=== PATIENT | female | born 1945 | race Caucasian/White ===

== ENCOUNTER 2018-02-16 15:55 | Observation (INO) | payer OTHER ==
--- NOTE | 2018-02-16 16:12 | ED ---
HPI Chest Pain - HPI Summary HPI Summary: This pt is a 72 y/o female presenting to [facility] via EMS c/o sudden onset of chest pain today. Pt has hx aortic valve stenosis. She reports she had an episode of chest pain on Jan 30 that developed while at rest and lasted about 45 minutes. Pt notes today she was working on her computer while at rest when she suddenly had chest pain, more severe this time. She states this episode also lasted about 45 minutes. Additionally report palpitations, characterized as fast over 100 bpm. Her blood pressure today while she had chest pain was 176/ 75. Pt notes she took 1/4 of a mg of Ativan. Denies SOB, dizziness, swelling in LE, nausea, vomiting. Currently her chest pain has resolved. Pt is followed up by Dr. Gorman and has a scheduled stress test coming up this week. - History of Current Complaint Time Seen by Provider: 02/16/18 16:01 Hx Obtained From: Patient Onset/Duration: Started Minutes Ago, Resolved Timing: Lasting Minutes - 45 minutes Initial Severity: Severe Current Severity: None Pain Intensity: 0 Pain Scale Used: 0-10 Numeric Chest Pain Location: Diffuse Chest Pain Radiates: No Aggravating Factor(s): Nothing Alleviating Factor(s): Spontaneous Resolution Associated Signs and Symptoms: Positive: Chest Pain, Palpitations. Negative: Dizziness, Shortness of Breath, Fever, Chills, Calf Pain/Swelling, Edema - Allergy/Home Medications Allergies/Adverse Reactions: Allergies Allergy/AdvReac Type Severity Reaction Status Date / Time amoxicillin Allergy Hives Verified 02/16/18 19:42 Penicillins Allergy Unknown Verified 02/16/18 19:42 Reaction Details Sulfa (Sulfonamide Allergy Rash Verified 02/16/18 19:42 Antibiotics) sulfamethoxazole Allergy Unknown Verified 02/16/18 19:42 [From Bactrim] Reaction Details trimethoprim [From Bactrim] Allergy Unknown Verified 02/16/18 19:42 Reaction Details PMH/Surg Hx/FS Hx/Imm Hx Endocrine/Hematology History: Denies: Hx Diabetes, Hx Thyroid Disease Cardiovascular History: Reports: Hx Hypertension - W/MEDS, Other Cardiovascular Problems/Disorders - Aortic Stenosis Denies: Hx Congestive Heart Failure Respiratory History: Denies: Hx Asthma, Hx Chronic Obstructive Pulmonary Disease (COPD) GI History: Denies: Hx Ulcer History: Denies: Hx Renal Disease Musculoskeletal History: Reports: Other Musculoskeletal History - BLT frozen sholder, shattered elbow 2007 Denies: Hx Rheumatoid Arthritis, Hx Osteoporosis Sensory History: Reports: Hx Contacts or Glasses Opthamlomology History: Reports: Hx Contacts or Glasses Psychiatric History: Reports: Hx Depression - 30 yrs ago ok now - Cancer History Hx Chemotherapy: No Hx Radiation Therapy: No - Surgical History Surgery Procedure, Year, and Place: hysterectomy, pelvic floor reconstruction Infectious Disease History: Denies: Hx Hepatitis, Hx Human Immunodeficiency Virus (HIV) - Family History Known Family History: Positive: Hypertension - Father Family History: Mother with metastatic breast CA and colon CA - Social History Alcohol Use: Occasionally Substance Use Type: Reports: None Smoking Status (MU): Never Smoked Tobacco Review of Systems Negative: Fever, Chills Positive: Palpitations, Chest Pain Negative: Shortness Of Breath Negative: Vomiting, Nausea Negative: Edema - in LE Neurological: Other - NEG: dizziness All Other Systems Reviewed And Are Negative: Yes Physical Exam - Summary Physical Exam Summary: VITAL SIGNS: Reviewed. GENERAL: Patient is a well-developed and nourished female who is lying comfortable in the stretcher. Patient is not in any acute respiratory distress. HEAD AND FACE: No signs of trauma. No ecchymosis, hematomas or skull depressions. No sinus tenderness. EYES: PERRLA, EOMI x 2, No injected conjunctiva, no nystagmus. EARS: Hearing grossly intact. Ear canals and tympanic membranes are within normal limits. MOUTH: Oropharynx within normal limits. NECK: Supple, trachea is midline, no adenopathy, no JVD, no carotid bruit, no c- spine tenderness, neck with full ROM. CHEST: Symmetric, no tenderness at palpation LUNGS: Clear to auscultation bilaterally. No wheezing or crackles. CVS: Regular rate and rhythm, S1 and S2 present, no gallops appreciated. Ejection systolic murmur 4/6. ABDOMEN: Soft, non-tender. No signs of distention. No rebound, no guarding, and no masses palpated. Bowel sounds are normal. EXTREMITIES: FROM in all major joints, no edema, no cyanosis or clubbing. NEURO: Alert and oriented x 3. No acute neurological deficits. Speech is normal and follows commands. SKIN: Dry and warm Triage Information Reviewed: Yes Vital Signs On Initial Exam: Initial Vitals Temp Pulse Resp BP Pulse Ox 99.3 F 109 16 183/77 96 02/16/18 16:01 02/16/18 16:01 02/16/18 16:01 02/16/18 16:01 02/16/18 16:01 Vital Signs Reviewed: Yes Diagnostics - Laboratory Result Diagrams: 02/16/18 16:35 02/16/18 16:35 Lab Statement: Any lab studies that have been ordered have been reviewed, and results considered in the medical decision making process. - Radiology Chest XR Xray Interpretation: No Acute Changes - IMPRESSION: Stigmata of obstructive lung disease. No acute pulmonary or cardiac process evident. Dr. Boyd has reviewed this report. Radiology Interpretation Completed By: Radiologist - EKG 16:11 Cardiac Rate: Tachycardia - at 107 bpm EKG Rhythm: Sinus Tachycardia EKG Interpretation: ST depressions in V4-V6. Re-Evaluation - Re-Evaluation First Eval Re-Evaluation Time: 18:26 Comment: I reviewed the lab and XR results with the pt. I discussed the admission plan with the pt, she understands and agrees. Chest Pain Course/Dx - Course Assessment/Plan: This pt is a 72 y/o female presenting to [facility] via EMS c/o sudden onset of chest pain today. Pt has hx aortic valve stenosis. She reports she had an episode of chest pain on Jan 30 that developed while at rest and lasted about 45 minutes. Pt notes today she was working on her computer while at rest when she suddenly had chest pain, more severe this time. She states this episode also lasted about 45 minutes. Additionally report palpitations, characterized as fast over 100 bpm. Her blood pressure today while she had chest pain was 176/75. Pt notes she took 1/4 of a mg of Ativan. Denies SOB, dizziness, swelling in LE, nausea, vomiting. Currently her chest pain has resolved. Pt is followed up by Dr. Gorman and has a scheduled stress test coming up this week. Blood work without any significant abnormality except for glucose 146, BNP 114. Chest x-ray no acute pathology. Since the patient is having this intermittent chest pain at rest I discussed my physical exam and findings with Dr. Reinoso, hospitalist, who accepted the patient for admission. The patient at this time is hemodynamically stable alert oriented 3. - Chest Pain Differential Diagnosis/HQI/PQRI: Acute [place], ACS, Angina, CHF, Chest Wall, GI Disease, Lower Respiratory Infection - Diagnoses Provider Diagnoses: Chest pain, Angina at rest - Provider Notifications Discussed Care Of Patient With: Taj Reinoso - Hospitalist Time Discussed With Above Provider: 18:17 Instructed by Provider To: Admit As Inpatient Discharge - Sign-Out/Discharge Documenting (check all that apply): Patient Departure - Admit to [facility] All imaging exams completed and their final reports reviewed: Yes - Discharge Plan Condition: Good Disposition: ADMITTED TO [facility] - Billing Disposition and Condition Condition: STABLE Disposition: Admitted to [facility] - Attestation Statements Document Initiated by Scribe: Yes Documenting Scribe: Elizabeth Barfield Provider For Whom Scribe is Documenting (Include Credential): Walker Boyd MD Scribe Attestation: Elizabeth Bruce, scribed for Walker Boyd MD on 02/18/18 at 0905. Scribe Documentation Reviewed: Yes Provider Attestation: The documentation as recorded by the scribeElizabeth accurately reflects the service I personally performed and the decisions made by , Walker Boyd MD
[2018-02-16 16:49] LABS: ABS Basophils 0.1 10^3/ul (0-0.2); ABS Eosinophils 0.1 10^3/ul (0-0.6); ABS Lymphocytes 1.4 10^3/ul (1.0-4.8); ABS Monocytes 0.9 10^3/ul (0-0.8); ABS Nucleated RBC 0 10^3/ul; Eosinophil % 1.1 % (0-6); Hematocrit 45 % (35-47); Hemoglobin 15.2 g/dl (12.0-16.0); Lymphocyte % 14.8 % (25-47); Mean Corpuscular HGB Conc 34 g/dl (31-36); Mean Corpuscular Hemoglobin 31 pg (27-31); Mean Corpuscular Volume 90 fL (80-97); Mean Platelet Volume 8.6 um3 (7.4-10.4); Nucleated Red Blood Cells % 0.1; Platelet Count 270 10^3/ul (150-450); Red Blood Count 4.97 10^6/ul (4.00-5.40); Red Cell Distribution Width 13 % (10.5-15); White Blood Count 9.5 10^3/ul (3.5-10.8)
[2018-02-16 16:59] LABS: INR 0.93 (0.77-1.02)
--- NOTE | 2018-02-16 17:11 | RAD ---
Indication: Chest pain. Aortic stenosis. Comparison: September 22, 2014 CT abdomen Technique: Upright AP 1623 hours Report: Elevated lung volumes. No focal pulmonary lesion, compelling alveolar consolidation, pleural effusion, pneumothorax. Negative for cardiomegaly. Unremarkable central pulmonary vasculature. Mildly tortuous thoracic aorta. IMPRESSION: #. Stigmata of obstructive lung disease. No acute pulmonary or cardiac process evident.
[2018-02-16 17:28] LABS: EGFR Non-African American 81.2 (>60)
[2018-02-16] MEDS ORDERED: LORazepam TAB(*) 0.5 MG PO PRN (18:06)
[2018-02-16] MEDS ORDERED: hydrALAZINE IV* 20 MG/ML VIAL IV SLOW PU PRN (18:08)
[2018-02-16] MEDS ORDERED: Melatonin 3 MG TAB PO PRN (18:10)
[2018-02-16] MEDS ORDERED: Acetaminophen TAB* 325 MG PO PRN (18:10)
[2018-02-16] MEDS: Heparin VIAL(*) 5000 UNITS/ML VIAL (FIVE THOUSAND) SUBCUT SCH (20:45)
[2018-02-16 20:46] LABS: Urine Appearance Clear; Urine Color Yellow; Urine Ketones Negative (Negative); Urine Protein Negative (Negative); Urine Urobilinogen Negative (Negative)
[2018-02-16 20:47] LABS: Urine Blood Negative (Negative)
[2018-02-16 20:51] LABS: Urine Red Blood Cell Trace(0-2/hpf) (Absent); Urine White Blood Cell 1+(6-10/hpf) (Absent)
--- NOTE | 2018-02-16 21:20 | HP ---
CC: Dr. Whalen; Dr. Andrea Gorman of Cardiology * ADMISSION HISTORY AND PHYSICAL: DATE OF ADMISSION: 02/16/18 PRIMARY CARE PROVIDER: Mira Whalen M.D. MY ATTENDING FOR TODAY: Dr. Elvis Baum.* (DICTATED BY MAGGIE NAVARRO NP) PRIMARY FLAVOR TANK TENDER: Andrea Gorman DO CHIEF COMPLAINT: Chest pain. HISTORY OF PRESENT ILLNESS: This is a very pleasant 72-year-old female patient who has been having intermittent angina. The patient has been following with Dr. Gorman. She has known aortic valve stenosis that is severe. The patient had [place] [facility] to see a cardiothoracic surgeon there to evaluate her valvular disorder. However, she is having this persistent chest pain 3 weeks ago. She had it for 45 minutes and then it resolved on its own. She had that episode again today, 45 minutes of chest heaviness and was also exertional in nature. The patient was told to come to the emergency department for evaluation. Upon examination, the patient here is resting comfortably. She states the chest pain has resolved. She is expressing no fever, fatigue, or chills. No chest pain, no exertional dyspnea, no acute shortness of breath, no abdominal pain, no nausea, no vomiting, no urinary complaints, and no further constitutional complaints. PAST MEDICAL HISTORY: Significant for hypertension and aortic valve stenosis. PAST SURGICAL HISTORY: Robotic surgery for prolapsed vagina in 2009. MEDICATIONS: At home: 1. Vitamin D 1000 units p.o. daily. 2. Lorazepam 0.5 mg 3 times a day as needed. 3. Multivitamin 1 tab p.o. daily. 4. Lisinopril 2.5 mg daily. ALLERGIES: PENICILLINS, BACTRIM, AMOXICILLIN, and SULFA-BASED MEDICATIONS. SOCIAL HISTORY: Does not smoke. Does not drink alcohol. Does not drink caffeine and denies any illicit drug use. She does work full-time. Was planning on retiring at the end of this year. Her daughter is her healthcare proxy who is currently at the bedside for examination. FAMILY HISTORY: Significant for mother with breast cancer and colon cancer. Father with hypertension. REVIEW OF SYSTEMS: A 10-point review of systems is negative except as noted in the HPI above. PHYSICAL EXAMINATION GENERAL: The patient is awake, alert, no acute distress, well appearing, appears to be stated age. VITAL SIGNS: Blood pressure 183/77, heart rate 109, respiratory rate 16, O2 saturation 96% on room air with a temperature of 99.3. HEENT: The patient is atraumatic, normocephalic. PERRLA with nonicteric sclerae. NECK: Supple, nontender. No JVD noted. No carotid bruits auscultated. LUNGS: Clear bilaterally to auscultation with no wheezing, rhonchi, or rales. CARDIOVASCULAR: S1, S2 present. Rate and rhythm are currently regular. Tachycardia has resolved. She has a grade 4/6 systolic murmur noted. ABDOMEN: Soft, nontender, nondistended. Positive bowel sounds in all 4 quadrants. : Deferred. MUSCULOSKELETAL: There is no clubbing, no cyanosis and no pedal edema. She has +2 distal pulses palpable. Steady gait. Full range of motion with gross motor and sensation intact. NEUROLOGIC: She is grossly intact with no new focalities. PSYCHIATRIC: She appears nervous, but entirely appropriate. LABORATORY DATA: WBC is 9.5, RBC is 4.97, hemoglobin 15.2, hematocrit 45, platelets 270. Sodium 140, potassium 3.8, chloride 107, CO2 27, BUN 20, creatinine 0.71, GFR 81.2, glucose 146. Lactic acid 1.5. Calcium 9.6. Magnesium 2.1. Bilirubin 0.40. LFTs are normal. Troponin is negative at 0.01. BNP is 114. Total protein 6.7. TSH 1.36 and globulin is 2.5. INR is 0.93. IMAGING: Chest x-ray dated 02/16/18 shows stigmata of obstructive lung disease , no acute pulmonary or cardiac process is evident. Initial EKG showed sinus tachycardia with a rate of 109 and she is currently now in regular sinus rhythm with no further tachycardia. IMPRESSION: This is a 72-year-old female patient with a known history of aortic stenosis that has been having bouts of unstable angina came to the emergency department for evaluation of her chest pain. DIAGNOSES: 1. Chest pain, rule out acute coronary syndrome. Plan is to stress the patient tomorrow. She was originally scheduled for an outpatient stress test on . She has had an echocardiogram at the end of December, so we will not repeat that. We will defer to cardiology if they want to further evaluate her valve; however, she was needing to be optimized before having her aortic valve surgery. So in either case, a stress test is warranted during this admission. Her first troponin is negative. We will continue to trend as long as they stay within normal range. There would be no contraindication for her having a stress test in the morning. 2. For her hypertension, she currently takes lisinopril 2.5 mg. We will give her hydralazine as needed with parameters and continue her vitamin D supplementation. If the patient has positive results tomorrow on her stress test , we will give Cardiology a call and have them formally consult. At this point , her primary joiner apprentice is Dr. Andrea Gorman. I can reach up to Dr. Gorman and discuss in case he would like any other additional testing. At this point, the patient is stable. She can have a regular diet this evening. She will be n.p.o. after midnight. She does not need volume repletion at this point. So, she will not need IV fluids. 3. She is a full code. 4. For deep vein thrombosis prophylaxis, she will be placed on heparin 5000 units q.8 hours. Rest of the patient's course will be determined by further diagnostics, laboratories, and any other input from other providers as warranted during this admission. This plan of care has been discussed with my attending, Dr. Elvis Baum, he is in agreement with the plan of care. TIME SPENT: I spent an excess of 60 minutes evaluating the patient interfacing with her and her family, evaluating the chart and interfacing with the ER staff. MAGGIE NAVARRO NP [id number]/[facility] #: [id number] VINITA
[2018-02-17] MEDS ORDERED: Regadenoson* 0.4 MG/5 ML SYRINGE ONE (07:33)
[2018-02-17] MEDS ORDERED: Aminophylline IV* 25 MG/ML 10 ML VIAL ONE (07:34)
[2018-02-17] MEDS ORDERED: Lisinopril TAB* 5 MG PO SCH (09:00)
[2018-02-17] MEDS ORDERED: Diazepam TAB(*) 5 MG PO PRN (09:30)
[2018-02-17] MEDS ORDERED: Diazepam TAB(*) 5 MG ONE (09:56)
[2018-02-17] MEDS: Cholecalciferol TAB* 1000 UNITS PO SCH (10:02)
--- NOTE | 2018-02-17 10:02 | RAD ---
INDICATION: Chest pain. COMPARISON: No relevant prior exams available on the [facility] for comparison. TECHNIQUE: 10.500 mCi of Tc-99m Myoview were administered IV. SPECT images of the heart were obtained. REPORT AND IMPRESSION: #. Incomplete exam the stress portion exam was canceled. The patient is undergoing a cardiac catheterization. #. The rest images demonstrate a small region of photopenia at the junction of the septum and anterior wall which may be artifact due to the RV insertion. Perfusion at rest is otherwise normal.
[2018-02-17] MEDS ORDERED: Iohexol 350 (CONTRAST) 200 ML MDV IV ONE (10:45)
[2018-02-17] MEDS ORDERED: Heparin 2 UNITS/ML IVPREMIX* 2,000 ML IV ONE (10:45)
[2018-02-17] MEDS ORDERED: Lidocaine 1% INJ* 10 MG/ML 30 ML SDV ONE (10:45)
[2018-02-17] MEDS ORDERED: Midazolam* 1 MG/ML 10 ML VIAL (10 MG) ONE (10:59)
[2018-02-17] MEDS ORDERED: fentaNYL* 50 MCG/ML 2 ML VIAL (100 MCG VIAL) ONE (10:59)
[2018-02-17] MEDS ORDERED: Atropine SYRINGE* 0.1 MG/ML 10 ML SYRINGE (1 MG) ONE (12:08)
[2018-02-17] MEDS: Heparin VIAL(*) 5000 UNITS/ML VIAL (FIVE THOUSAND) SUBCUT SCH ×2 (12:12→21:21)
[2018-02-17] MEDS ORDERED: NS 0.9% 1000 ML* 1,000 ML IV SCH (12:15)
--- NOTE | 2018-02-17 14:35 | PN ---
Subjective Date of Service: 02/17/18 Interval History: Patient seen and examined Stress test cancelled. Discussed with Dr. Lawson, to undergo cardiac catheterization instead. Denies SOB, no chest pain, no fevers or chills. No further complaints. Objective Active Medications: Acetaminophen (Tylenol Tab*) 650 mg PO Q6H PRN PRN Reason: headache or fever Aspirin (Aspirin Ec Tab*) 81 mg PO 1800 [facility] Atorvastatin Calcium (Lipitor*) 40 mg PO 2100 [facility] Cholecalciferol (Vitamin D Tab*) 1,000 units PO DAILY [facility] Last Admin: 02/17/18 10:02 Dose: 1,000 units Heparin Sodium (Porcine) (Heparin Vial(*)) 5,000 units SUBCUT Q12HR [facility] Last Admin: 02/17/18 12:12 Dose: Not Given Hydralazine HCl (Apresoline Iv*) 5 mg IV SLOW PU Q6H PRN PRN Reason: SBP>180 or DBP>90 Sodium Chloride (Ns 0.9% 1000 Ml*) 1,000 mls @ 125 mls/hr IV .per rate [facility] Sodium Chloride (Ns 0.9% 1000 Ml*) 1,000 mls @ 100 mls/hr IV .per rate [facility] Stop: 02/17/18 16:14 Lisinopril (Prinivil Tab*) 2.5 mg PO DAILY [facility] Last Admin: 02/17/18 10:02 Dose: 2.5 mg Lorazepam (Ativan Tab(*)) 0.5 mg PO TID PRN PRN Reason: ANXIETY Melatonin (Melatonin) 3 mg PO BEDTIME PRN; Protocol PRN Reason: SLEEP Vital Signs - 8 hr 02/17/18 02/17/18 02/17/18 07:29 10:03 12:19 Temperature 98.2 F Pulse Rate 88 77 Respiratory 20 16 13 Rate Blood Pressure 155/58 136/70 (mmHg) O2 Sat by Pulse 96 98 Oximetry 02/17/18 02/17/18 02/17/18 12:45 12:58 13:51 Temperature 98.3 F Pulse Rate 78 63 81 Respiratory 22 16 18 Rate Blood Pressure 119/60 119/63 123/55 (mmHg) O2 Sat by Pulse 98 99 97 Oximetry 02/17/18 13:58 Temperature 98.3 F Pulse Rate 81 Respiratory 18 Rate Blood Pressure 123/55 (mmHg) O2 Sat by Pulse 97 Oximetry Oxygen Devices in Use Now: None Appearance: alert, NAD Eyes: PERRLA Ears/Nose/Mouth/Throat: NL Teeth, Lips, Gums, Mucous Membranes Moist Neck: NL Appearance and Movements; NL JVP, Trachea Midline Respiratory: Symmetrical Chest Expansion and Respiratory Effort, Clear to Auscultation Cardiovascular: NL Sounds; No Murmurs; No JVD, RRR, No Edema Abdominal: NL Sounds; No Tenderness; No Distention Extremities: No Edema Skin: No Rash or Ulcers Neurological: Alert and Oriented x 3, NL Sensation, NL Muscle Strength and Tone Nutrition: Taking PO's Result Diagrams: 02/16/18 16:35 02/16/18 16:35 Assess/Plan/Problems-Billing Assessment: This is a 72 year old female with history of aortic stenosis that presented to the ER with complaints of chest pain. - Patient Problems (1) Aortic valve stenosis, critical Code(s): I35.0 - NONRHEUMATIC AORTIC (VALVE) STENOSIS SNOMED Code(s): 961120865 Comment: - [facility] (2) CAD (coronary artery disease) Code(s): I25.10 - ATHSCL HEART DISEASE [place] CORONARY ARTERY W/O ANG PCTRS SNOMED Code(s): 77648228 Comment: - Chest pain at admission - Please see cardiac cath notes today from Dr. Arce - Patient with multi-vessel disease - Initiate ASA and lipitor (3) HTN (hypertension) Code(s): I10 - ESSENTIAL (PRIMARY) HYPERTENSION SNOMED Code(s): 00296407 Comment: - Continue lisinopril daily - BP improved today Status and Disposition: Dispo with two options, if stable tomorrow, may DC to home and f/u with [facility] this week as an outpatient to explore surgical options for valve replacement; and, either stenting or bypass for newly diagnosed CAD. Continue to monitor closely.
[2018-02-17] MEDS: NS 0.9% 1000 ML* 1,000 ML IV SCH (17:30)
[2018-02-17] MEDS ORDERED: Aspirin EC TAB* 81 MG TAB.EC PO SCH ×2 (18:00)
--- NOTE | 2018-02-17 20:30 | CONS ---
CC: Dr. Mira Whalen; Dr. Andrea Gorman; Dr. Guerrero, Cardiothoracic Surgeon at [facility], . * CARDIOLOGY CONSULTATION: DATE OF CONSULT: 02/17/18 REASON FOR CONSULT: The patient presents now with progressive unstable angina pectoris with a history of critical aortic stenosis, assess cardiac status. HISTORY OF PRESENT ILLNESS: The patient is a 72-year-old female, known to our group most recently through Dr. Andrea Gorman, who is following her for cardiac issues. She was just seen 4 days ago when she had been evaluated in the office and had now discussed with him the development of a discomfort deep in her chest that she develops when she climbs up hills. She believes it is an anginal equivalent as it goes away with rest. At the time when he saw her, she had not described definite episodes occurring at rest, but interestingly over the past 3 days, she has had progression to where even sitting in front of a computer, she developed the symptoms. She said they were exactly like what she gets with exertion. Because of this, she presented to the hospital. Overnight , her cardiac enzymes had been negative. She was scheduled by the hospitalist for a Lexiscan stress test, but when I saw her clearly given critical aortic stenosis, I felt Lexiscan and stress test was not indicated. Dr. Gorman had been planning to do an exercise stress echo. I did have discussions with the patient regarding proceeding with something like that; however, I stated given the fact that symptoms occurred at rest and if these are indeed exactly like she had with exertion, I would consider this being progressive in nature and unstable angina. Given that I explained the cardiac catheterization would be the wiser potential decision, she understood that and actually wished to proceed with that instead of stress echocardiography. The risks and benefits were explained and as such, we will proceed with cardiac catheterization. PAST MEDICAL HISTORY: Includes hypertension, hyperlipidemia, and aortic stenosis with a most recent echo from 01/23/18 showing normal LV size, izyt-sz-butlkvta LVH and EF of 65% with normal left atrial size. There was severe aortic stenosis with a peak velocity of 4.75 m/s with a mean gradient of 54.8 mmHg. The aortic valve was calculated to be 0.61 cm2 with [id number] aortic regurgitation. There was a question as to whether or not her aortic valve was bicuspid or tricuspid. "She was told in the past there was a question that it was bicuspid. Her ascending aorta was mildly dilated." PAST SURGICAL HISTORY: Includes a hysterectomy, supracervical BAN, sacrocolpopexy, chordoplasty, an enterocele repair, a cystoscopy for pelvic relaxation, uterine bladder prolapse at the [facility]. CURRENT MEDICATIONS: 1. Lisinopril 2.5 mg a day. 2. Lorazepam 0.5 mg every 12 hours as needed for anxiety. 3. MultiVites once a day. 4. Vitamin D. FAMILY HISTORY: Father has osteoporosis and hip fracture, due to natural causes at 91. Mother, colon cancer, breast cancer, due to cancer. SOCIAL HISTORY: She is . 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 Habits: She has never smoked. She denies any alcohol usage. Denies illicit drug usage. REVIEW OF SYSTEMS: As per the H and P with no additional additions. PHYSICAL EXAM: When I see her reveals a pleasant female, in no acute distress. Vital Signs: Reveal blood pressure of 150/58 with a pulse of 80 and regular, respirations 16 to 20, O2 saturation 96% on room air. Neck was supple with no obvious increased JVP. Carotid has decreased upstroke and volume. There was transmitted murmur versus bruit bilaterally. Conjunctivae are pink. Sclerae clear. Mouth reveals moist mucosa. Lungs revealed no accessory muscle usage. She has good excursion. There are no active, rales, rhonchi, or wheezes. Heart reveals no visible heaves. No palpable heaves or thrills. Normal S1, S2 is obliterated by a harsh 3/6 systolic murmur. S2 does not split physiologically. I cannot appreciate a definitive diastolic murmur. Abdomen is soft, nontender. Extremities are without clubbing, cyanosis, or francy pitting edema. Peripheral pulses are intact. Femoral pulse present without bruit. Neuro: The patient alert, oriented with normal mentation. Musculoskeletal: The patient with normal gait. Psychiatric: The patient with normal affect. DIAGNOSTIC STUDIES/LAB DATA: Laboratory results reveal hemoglobin and hematocrit of 15.2 and 45, platelet count of 270,000, white count 9500. Sodium 140, potassium 3.8, chloride 107, bicarb 27, BUN and creatinine of 20 and 0.7, lactic acid of 1.5. Troponins were 0.01, 0.03, 0.03, 0.01 respectively. The initial total CPK was 49 with an MB of 2.6, no other values of those are available. TSH 1.36. SGOT 22, SGPT 16. Chest x-ray shows mild tortuous thoracic aorta with normal cardiac size and unremarkable central pulmonary vasculature. There is some question of stigmata of obstructive lung disease according to the report. EKG dated 02/16/18, time 1611 reveals sinus tachycardia, heart rate of 107, NE interval 0.18, QRS is 0.08, QT 0.34, axis is +19 degrees. There is mild horizontal ST segment pressure I to aVL and suddenly in V4 and V5 and V6. OVERALL ASSESSMENT: Savana presents now with symptoms that may indeed be unstable angina. She does have critical aortic stenosis and given the progression of her symptoms, this is quite disconcerting. I am a little surprise that she has discomfort at rest, which might speak more for the presence of underlying coronary artery disease in addition to the aortic stenosis. At this point in time, we discussed cardiac catheterization to assess her coronary anatomy to rule out critical disease. She understands the risks and benefits and wished to proceed. Given the fact that we already know the aortic valve is critically stenosed, I do not see any reason to cross the aortic valve, but rather we will limit the study to coronary arteriography to decide whether or not there is significant coronary artery disease to be the culprit of her now present acute coronary syndrome by symptoms. Further management will be made pending results of these. Thank you very much for having asked me to see her and we will follow her along with you. [id number]/[facility] #: [id number] VINITA
[2018-02-17] MEDS ORDERED: Atorvastatin* 40 MG TAB PO SCH (21:00)
[2018-02-18] MEDS: NS 0.9% 1000 ML* 1,000 ML IV SCH (03:04)
--- NOTE | 2018-02-18 04:30 | CATH ---
CC: Dr. Mira Whalen; Dr. Andrea Gorman; Dr. Akhil Guerrero, Department of Cardiothoracic Surgery, [facility], [facility], fax #[phone]. * CARDIAC CATHETERIZATION REPORT: DATE OF PROCEDURE: 02/17/18 - ROOM #442 INDICATION FOR PROCEDURE: The patient presents with progressive anginal symptoms with episode occurring at rest with a history of critical aortic stenosis, assessed for the presence of underlying significant coronary artery disease. PROCEDURE: Coronary arteriography. PRECARDIAC CATHETERIZATION LABORATORY RESULTS: Hemoglobin and hematocrit of 15.2 and 45 with a platelet count of 270,000. BUN and creatinine of 20 and 0.7. Sodium of 140, potassium 3.8, chloride 107, bicarb 27. EQUIPMENT UTILIZED: 1. Right femoral artery sheath: A 5-Maldivian, 11-cm Verónica sheath. 2. Diagnostic coronary catheters: A 5-Maldivian FL4 curve and an FR4 curve diagnostic catheter. DIAGNOSTIC GUIDEWIRE UTILIZED: A 175 length J-Tip 0.35 guidewire. APPROACH UTILIZED: Right femoral artery. DESCRIPTION OF PROCEDURE: The patient was interviewed and examined in the stress test lab where the risks and benefits were explained. She understood them and wished to proceed. She was brought into the cardiovascular laboratory where a formal time-out was performed. She was prepped and draped in a sterile fashion. The right groin area was anesthetized with 1% lidocaine, right femoral artery was cannulated using an anterior wall approach only and the 5-Maldivian sheath was placed. Coronary arteriography was performed. Following this, the sheath was removed and manual pressure was utilized to control hemostasis in light of the patient still debating whether or not she would under a TAVR procedure in the very near future given progressive symptoms. The total contrast used was 100 cc of Omnipaque dye. The radiation exposure included 4.7 minutes of fluoro time. The air kerma radiation was 728 mGy. The DAP radiation was 3978 microGy/m2. RESULTS: CORONARY ARTERIOGRAPHY: A. Left coronary artery: 1. Left main - widely patent with no significant obstruction. 2. Left anterior descending artery - of note, there was tapering within the [id number] portion of the left anterior descending artery. 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 The rest of the left anterior descending artery was somewhat corkscrew in appearance as were its branches suggesting the presence of left ventricular hypertrophy, but no critical stenosis in the body of the left anterior descending artery. The second diagonal branch was a small caliber vessel, but appeared to have a significant 90% to 95% blockage at its origin with HUBER-3 flow. The third diagonal branch had an ostial/proximal narrowing that appeared to be 40% to 45%. 3. Circumflex artery - a nondominant vessel supplying a very thin first obtuse marginal branch followed by small caliber second obtuse marginal branch. The third obtuse marginal branch trifurcated supplying the mid-to-low posterolateral wall. Prior to this third obtuse marginal branch in the mid portion of the circumflex, there was an area of narrowing, which was found to be 40% to 45%. B. Right coronary artery - a dominant vessel supplying a low lying acute marginal branch, which supplied the distal low intraventricular septum followed by a small posterior descending artery supplying the more proximal segment and a moderate- sized posterior left ventricular branch. There was tapering in the mid portion of the right coronary artery with an area of stenosis seen to be approximately 75% . HUBER-3 flow was noted through this vessel as well. Fluoroscopy of aortic valve demonstrated significant calcification within the leaflets of the aortic valve with marked restricted motion. OVERALL ASSESSMENT: Coronary artery disease involving most significantly the mid portion of the right coronary artery with a 75% blockage. Moderate disease seen in the mid portion of the left anterior descending artery as described above (60% to 65% lesion). A significant 90% to 95% ostial lesion in a small caliber diagonal branch is noted, but this vessel does not appear to be a vessel that could be intervened on percutaneously given its small caliber and small area of muscle of myocardium that it supplies. I am not necessarily convinced this is a bypassable vessel. The diagonal branch has a moderate narrowing in its ostial/ proximal portion as described above. This information will be shared with her primary development associate, Dr. Andrea Gorman and with her cardiothoracic surgeon, Dr. Guerrero at [facility]. [id number]/[facility] #: [id number] [facility]WORK[facility]
[2018-02-18] MEDS: Cholecalciferol TAB* 1000 UNITS PO SCH (08:50)
[2018-02-18] MEDS: Heparin VIAL(*) 5000 UNITS/ML VIAL (FIVE THOUSAND) SUBCUT SCH (08:51)
[2018-02-18] MEDS ORDERED: Metoprolol Succinate XL TAB* 25 MG PO SCH (09:00)
[2018-02-18 12:18] VITALS: BP 121/58
== END 2018-02-18 13:12 | disposition home or self-care (01) ==
LOC: ED 15:55 → MEDTELE 18:02 → OBSVTOIN 02-17 14:58 → INTOOBSV 02-17 14:58
PROVIDERS: ADMIT Student in an Organized Health Care Education/Training Program; ATTEND Internal Medicine
DX: R07.9 Chest pain, unspecified (principal); I10 Essential (primary) hypertension; I35.0 Nonrheumatic aortic (valve) stenosis; I25.110 Atherosclerotic heart disease of native coronary artery with unstable angina pectoris; E78.5 Hyperlipidemia, unspecified; Z79.899 Other long term (current) drug therapy; Z88.0 Allergy status to penicillin; Z88.2 Allergy status to sulfonamides; Z82.49 Family history of ischemic heart disease and other diseases of the circulatory system; R00.0 Tachycardia, unspecified
CPT/HCPCS: 36415; 71045; 78451; 80053; 81003; 81015; 82550; 82553; 83605; 83735; 83880; 84443; 84484; 85025; 85610; 85730; 87086; 93005; 93454; 96372; 99284; A9270-GY; A9502; C1887; G0378; J0280; J0461; J1644; J2250; J2785; J3010